=== PATIENT | female | born 1960 | race Caucasian/White ===

== ENCOUNTER → 2023-08-30 09:16 | Outpatient (REF) | payer OTHER, SELFPAY | LOC: WDC 09:16 | PROVIDERS: ATTENDING PHYSICIAN Surgery; FAMILY PHYSICIAN Internal Medicine | DX: N63.21 Unspecified lump in the left breast, upper outer quadrant (principal) | CPT/HCPCS: 76642; 77062; 77066 ==

== ENCOUNTER 2023-09-01 05:55 | Day surgery (SDC) | payer OTHER, SELFPAY ==
[2023-08-16 13:35] VITALS: BMI 21.9
--- NOTE | 2023-08-16 13:38 | HPS.HSE ---
Family Physician
-
Family Physician: Irvin Marks
Chief Complaint
-
Paroxysmal atrial fibrillation.
History of Present Illness
The patient is a pleasant 63 year old female presenting today for paroxysmal atrial fibrillation. The patient reports significant chest discomfort and palpitations occurring mainly at night secondary to this diagnosis. She was initially
diagnosed with atrial fibrillation in August 2022. Unfortunately, she has required 3 recent ER evaluations due to the recurrence of her atrial fibrillation with rapid ventricular response. She is on current pharmacological therapy with Metoprolol
Succinate. She is on no current oral anticoagulation due to a CHADS-VASc of 1. She notes that her current symptoms associated with her arrhythmia are greatly interfering with her activities of daily living and are overall impacting her quality of
life. She is interested in pursuing atrial fibrillation ablation for further arrhythmia management. She denies any current complaints today such as chest pain, shortness of breath, nausea, vomiting, diarrhea, lightheadedness, dizziness, cough, sore
throat, or fever.
Medical History
Past Medical History
Past Medical History: Reports Other
Additional Past Medical History:
1. Paroxysmal atrial fibrillation, pharmacological therapy with Metoprolol Succinate, no current oral anticoagulation.
2. Sinus bradycardia secondary to Metoprolol, asymptomatic.
3. Mild mitral regurgitation.
4. Mild tricuspid regurgitation.
5. Asthma, mild and intermittent.
6. Acute bronchitis 06/2023.
7. Diverticulosis.
8. Remote migraines.
9. Vertigo.
10. Interstitial cystitis.
11. Hypoglycemia.
12. Retinal detachment of right eye.
13. Macular pucker of right eye.
14. Diminished right sided vision secondary to the above.
15. Right sided otosclerosis, status post stapedectomy; residual right sided hearing loss noted.
Past Surgical History: Reports Other
Additional Past Surgical History:
1. Cholecystectomy.
2. Left ganglion cyst excision.
3. Right stapedectomy.
4. Right detached retina repair.
5. Right vitrectomy.
6. Sawyer teeth extraction.
7. Colonoscopy.
Social History
Tobacco: Non-smoker
Alcohol: None
Personal:
Living: Other (She currently lives in a 3 story home with her . )
Family History
Family History: Not pertinent
Allergies / Home Medications
Allergy/Medication List:
Home medications:
1. Albuterol sulfate 2 puffs inhaled every 6 hours as needed.
2. Aspirin 81 mg p.o. daily.
3. Probiotic 1 capsule p.o. daily.
4. Metoprolol Succinate 50 mg p.o. twice a day.
5. Immune support 1 tablet p.o. daily.
6. Women's multivitamin 1 tablet p.o. daily.
Allergies: Penicillin. Bactrim.
Review of Systems
-
A 12 point ROS was completed and negative except as noted: Yes
Physical Exam
Vital Signs
Blood pressure 114/67. Heart rate 56. Respirations 18. Pulse ox 99% on room air.
Height 5 feet, 8.5 inches. Weight 66.3 kg. BMI 21.9.
Physical Exam
General: Well Developed, Well Nourished and No Apparent Distress
HEENT: NormoCephalic, Moist mucous membranes, Atraumatic and Other (Diminished right sided visual loss. )
Respiratory: Clear
Cardiac: Regular Rhythm
GI: Soft, Non Tender and Non Distended
Musculoskeletal: Normal Gait & Station
Skin: Warm and Dry
Neuro: AO x 3 and Nonfocal/grossly intact
Laboratory Results
-
DIAGNOSTIC STUDIES as of 08/16/2023: White blood cell count 6.4. Hemoglobin 13.6. Platelet count 264,000. Sodium 135. Potassium 4.3. BUN 18. Creatinine 0.8. Glucose 83. Calcium 9.2. AST 28. ALT 23. Albumin 4.3. Type and screen O positive.
EKG 08/16/2023: Sinus bradycardia. When compared to the EKG of July 13, 2023, no significant change was found.
Echocardiogram 10/05/2022: Left ventricle is small in size. Normal left ventricular systolic function. Normal right ventricular size and function. Mild mitral regurgitation. Mild tricuspid regurgitation. Compared to the previous echo 02/10/18, there
is no significant change.
Stress echocardiogram 02/08/2019: Normal Stress Echocardiogram to 9 METS. Normal hemodynamic response to exercise. No ECG or echocardiographic evidence of myocardial ischemia. No prior study available for comparison. Low risk study.
Impression/Plan
-
IMPRESSION/PLAN:
1. Paroxysmal atrial fibrillation: The patient is in need of an atrial fibrillation ablation with Dr. Nick Ceballos on 09/01/2023. The benefits and risks of the procedure have been explained to the patient. The patient understands these risks and
wishes to proceed.
[2023-08-16 14:02] LABS: % Basophils 0.8 % (0-2); % Eosinophils 1.9 % (0-6); % Immature Granulocytes 0.2 % (0-0.5); % Lymphocytes 35.1 % (20.5-51.1); % Monocytes 8.1 % (1.7-9.3); % Neutrophils 53.9 % (42.2-75.2); Absolute Basophils 0.1 10^3/uL (0-0.2); Absolute Eosinophils 0.1 10^3/uL (0-0.7); Absolute Lymphocytes 2.3 10^3/uL (1.2-3.4); Absolute Monocytes 0.5 10^3/uL (0.1-0.6); Absolute Neutrophils 3.5 10^3/uL (1.4-6.5); Hematocrit 37.8 % (37.0-47.0); Hemoglobin 13.6 g/dL (12.0-16.0); Mean Corpuscular Hgb 32.2 pg (27.0-31.0); Mean Corpuscular Volume 89.6 fL (81.0-99.0); Mean Platelet Volume 9.1 fL (7.4-10.4); Nucleated Red Blood Cells % 0 %; Platelet Count 264 10^3/uL (130-400); Red Blood Cell Count 4.22 10^6/uL (4.20-5.40); Red Cell Dist. Width 12.4 % (11.5-14.5); White Blood Cell Count 6.4 10^3/uL (4.8-10.8)
[2023-08-16 15:05] LABS: ALT (SGPT) 23 U/L (0-35); AST (SGOT) 28 U/L (14-36); Albumin 4.3 g/dl (3.5-5.0); Alkaline Phosphatase 89 U/L (38-126); Blood Urea Nitrogen 18 mg/dl (7-17); Calcium 9.2 mg/dl (8.4-10.2); Carbon Dioxide 29 mmol/L (22-30); Chloride 103 mmol/L (98-107); Estimated Creatinine Clearance 74 ml/min; Glucose 83 mg/dl (70-99); Potassium 4.3 mmol/L (3.5-5.1); Sodium 135 mmol/L (135-145); Total Bilirubin 0.6 mg/dl (0.2-1.3); Total Protein 6.9 g/dl (6.3-8.2); eGFR > 60.00
[2023-09-01] VITALS (13 sets, daily range): BP systolic 94–113; BP diastolic 56–71; BMI 20.5
--- NOTE | 2023-09-01 09:37 | ITS.CL.ABL ---
[employer] - Ablation
Ablation
Procedure Report:
AFIB ablation:
Ms. Garner is a very pleasant 63 yr old woman with medical history significant for symptomatic paroxysmal atrial fibrillation who is here in the EP lab for atrial fibrillation ablation
Date of Procedure:
08/02/2023
Indications:
Symptomatic atrial fibrillation
Pre-Operative Diagnosis:
Paroxysmal Atrial fibrillation
Post-Operative Diagnosis:
Paroxysmal Atrial fibrillation
Procedure Performed:
Atrial fibrillation ablation with wide area circumferential ablation (WACA) approach for pulmonary vein isolation
Performing Physician:
Nick Ceballos MD
Assistants:
EP staff
Anesthesia:
See anesthesia records
Detailed Description of the Procedure:
Written informed consent was obtained from the patient after a full explanation of the risks and benefits of the procedure including the risks of sedation and anesthesia.
The patient was brought to the electrophysiology laboratory in stable condition in fasting state. Continuous electrocardiographic and hemodynamic monitoring was initiated.
The initial rhythm was normal sinus rhythm.
The procedure site was meticulously prepared with surgical scrub and allowed to dry with no pooling. Sterile draping was applied to cover the procedure site. The image intensifier was draped with sterile bag and positioned over the patient. After
infusion of local anesthetic, vascular access was obtained under ultrasound guidance and sheaths were placed over guide wire as detailed below.
Sheath and Catheter Placement:
In the right femoral vein, an 8-Guinean sheath was placed for use during the ablation procedure. A second 9-Fr sheath was placed for use during intracardiac echo procedure.
The sheaths were upgraded as needed during the case. Intracardiac catheters were positioned using direct fluoroscopic guidance.� ICE catheter was placed in RA. The following catheters / sheaths were placed
Sheaths:
��������������� Agilis sheath in right femoral vein upgraded from 8Fr in right femoral vein
��������������� 9Fr in right femoral vein
Catheters:
������������� [employer]ense Doshi Thermacool STSF bidirectional (D/F) - at locations of HRA, RV, LA and LV.
������������� Pentaray catheter � at locations of RA and LA
������������� ICE catheter - at locations of RA, SVC, and RV.
Intracardiac ECHO:
An 8-Guinean AcuNav intracardiac ECHO (ICE) probe was advanced through the 9-Guinean sheath in the femoral vein into the right atrium under fluoroscopic and ICE ultrasound image guidance and a baseline ECHO study was performed. The left atrial size
was normal. There was trace tricuspid regurgitation. The aortic valve was grossly normal. There was normal left ventricular size and function. There was a trace pericardial effusion. The NED has normal velocities noted on Doppler. All the four veins
were identified and good flow noted.
During the procedure, ICE was used for monitoring of complications, guidance of trans-septal puncture, monitor the catheter position and tracking ablation lesions. No change in the pericardial space noted throughout the procedure.
Trans-septal Puncture:
Heparin was initiated and infused to maintain appropriate ACT.
A J-tipped guidewire was advanced through the 8-Guinean sheath in the right femoral vein into the superior vena cava under fluoroscopic and ICE guidance. The 8-Guinean sheath was exchanged for an Agilis sheath which was advanced into the superior vena
cava. A BRK needle was advanced until the tip was slightly behind the tip of the dilator inside the Agilis. The apparatus was withdrawn until it was in contact with the fossa ovalis. The position was adjusted based on fluoroscopy and ultrasound
images from ICE. Under fluoroscopic, hemodynamic and ICE ultrasound guidance, left atrium was cannulated by advancing the needle. Once atrial septum was cannulated, the needle was pulled back and a BMW guide wire was advanced through the needle into
the left atrium. The guide wire was advanced into the left superior pulmonary vein. Both the sheath and the dilator was advanced into the left atrium. The dilator with the needle was withdrawn. Blood was aspirated from the Agilis sheath and arterial
blood confirmed. The sheath was flushed. Saline injection noted into the left atrium on ICE. The pressure waveform was checked ad LA pressure measured. The penta-ray catheter was advanced in the Agilis sheath into the left pulmonary vein.
The 3-D mapping was done and then the penta-ray was switched to ablation catheter and back to penta-ray as needed.
3D Electroanatomic Mapping:
Using the Pentaray catheter advanced through Agilis sheath into the left atrium, an electroanatomic map (EAM) of the left atrium was created using [employer] Carto mapping system. The map was used for localization of catheter position and
tacking of ablation lesions. The EAM of the left atrium showed 4 pulmonary veins with all four electrically connected to the body the LA. It showed no significant scar on the posterior wall of the LA. The LA was normal in size.
Following the EAM, preparations were made for ablation.
Phrenic nerve stimulation attempt:
The right sided pulmonary veins were identified and the anterior antrum and the deep anterior locations of the PVs were check with high output stimulation that showed no phrenic nerve capture in any of the potential ablation areas. The whole of the
anterior wall was mapped and the deep veins were also tested and once no sign of phrenic capture noted, a design line was created through the areas of tested antral myocardium for ablation lesions.
Ablation:
Pulmonary vein Isolation:
Radiofrequency ablation was performed using an open irrigation, force-sensing 3.5mm radiofrequency ablation catheter ([employer] STSF) by completing the circumferential lesions around the left and right pulmonary veins achieving pulmonary vein
isolation.
All the ablation lesions were guided by the Maizhuo SURPOINT module with the posterior lesions were limited to 45 campbell for SURPOINT lesion index goal of 400 and anterior wall lesions were limited to SURPOINT index goal of 450.
The esophagus was noted to be on the left side of the LA near the PV antra based on the locations of the esophageal temperature probe. Ablation was stopped for any temperature increase of 0.1 degree C. Max esophageal temperature was 36.0C�
EP study / Confirmation of the PVI and bidirectional block:
Following achievement of entrance block at the pulmonary veins, pacing from the pentaray catheter in each of the four veins at 10 milliamps for 2 milliseconds showed entrance and exit block. All PVI were rechecked at the end of the case and remained
isolated with dissociated and local capture with pacing. Entrance and exit block were demonstrated in all veins.
The LA was mapped with Carto EAM in sinus rhythm confirming the line of block at the ablation lesions lines.
Sinus Node Function: The sinus node functions are within acceptable normal range.
The AV fredo functions are deemed within normal range.
The mitral annulus was mapped and no sign of accessory pathway was noted.
Arrhythmia Induction:
No sustained arrhythmia was induced at the end of the study.�
Procedure End
ICE study was done again that showed no epicardial accumulation. No complications noted.
Following the completion of the EP study, catheters were removed. Protamine 50 mg was given at the end of the procedure and ACT was checked repeatedly. The sheaths were removed and hemostasis achieved with Vascade venous closure device and manual
compression after acceptable ACT is achieved.
Left atrial Pressure:
Pre-Procedure: Mean LA pressure was 9mmHg
Post-Procedure: Mean LA pressure was 9mmHg
Post-Procedure: Mean RA pressure was 6mmHg
Estimated Blood loss:
<10 cc
Specimens Removed:
None.
Implants / Devices:
None
Urine output:
None
Packs / Drains/ Tubes:
None
Instrument / Sponge Count Correct:
Yes
Complications of the Procedure:
None
Condition of Patient at Time of Transfer:
Hemodynamically stable with no neurological or vascular compromise.
Summary:
Successful atrial fibrillation ablation with circumferential bidirectional line of block at pulmonary vein antra (Pulmonary vein isolation)
[2023-09-01] MEDS: ANESTHETIC LOZENGE 1 LOZENGE PO (11:28)
--- NOTE | 2023-09-01 12:04 | W.PN.UPDATE ---
Update Note
Progress Note Update
63 yo WF s/p PVI (same day). She feels good, no cp, dianne clears, voiding, amb w/o dizziness, mild sore throat relief with cepacol, R fem site VASCADE closure c/d/i soft. EKG SR no sig ectopy. She will continue OAC Eliquis dose at 4pm at home. She
will continue metoprolol and will add PPI for 2 weeks. ACtivity restrictions reviewed. 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 She is for d/c home after 12pm.
AFIB ablation:
Ms. Garner is a very pleasant 63 yr old woman with medical history significant for symptomatic paroxysmal atrial fibrillation who is here in the EP lab for atrial fibrillation ablation
Date of Procedure:
08/02/2023
Procedure Performed:
Atrial fibrillation ablation with wide area circumferential ablation (WACA) approach for pulmonary vein isolation
[2023-09-01 15:44] LABS: ACT-LR - POC > 397 Seconds (116-155)
[2023-09-01 15:44] LABS: ACT-LR - POC > 397 Seconds (116-155)
== END 2023-09-01 12:10 | disposition home or self-care (01) ==
LOC: CATH 05:55
PROVIDERS: ATTENDING PHYSICIAN Internal Medicine Cardiovascular Disease; FAMILY PHYSICIAN Internal Medicine; OTHER PHYSICIAN Internal Medicine
DX: I48.0 Paroxysmal atrial fibrillation (principal); I08.1 Rheumatic disorders of both mitral and tricuspid valves; J45.909 Unspecified asthma, uncomplicated; K57.90 Diverticulosis of intestine, part unspecified, without perforation or abscess without bleeding; G43.909 Migraine, unspecified, not intractable, without status migrainosus; R42 Dizziness and giddiness; N30.10 Interstitial cystitis (chronic) without hematuria; E16.2 Hypoglycemia, unspecified; H80.91 Unspecified otosclerosis, right ear; Z79.82 Long term (current) use of aspirin; Z88.1 Allergy status to other antibiotic agents
CPT/HCPCS: C1769; C1760; C1732; C1894; C1766; C1759; C1892; 36415; 76937; 80053; 85025; 85347; 86850; 86900; 86901; 93005; 93656

== ENCOUNTER → 2023-10-11 08:19 | Outpatient (REF) | payer OTHER, SELFPAY | LOC: DHCBC HW 08:19 | PROVIDERS: ATTENDING PHYSICIAN Internal Medicine; FAMILY PHYSICIAN Internal Medicine | DX: I48.0 Paroxysmal atrial fibrillation (principal) | CPT/HCPCS: 93306 ==

== ENCOUNTER 2024-02-09 11:45 | Emergency (ER) | payer OTHER, SELFPAY ==
[2024-02-09 11:50] VITALS: BP 155/84; BMI 20.8
[2024-02-09 12:17] VITALS: BP 131/77
--- NOTE | 2024-02-09 12:28 | ED.GENMED ---
History of Present Illness
General
Chief Complaint: Heart Rate Problem
Source: patient
Exam Limitations: none
Time Seen by Provider: 02/09/24 12:17
History of Present Illness
History of Present Illness:
See MDM
Past History
Past History
ED Past Medical History: Arrthythmia and Asthma
Social History
Tobacco: Non-smoker
Alcohol: Occasional
Drug: None
Personal:
Living: with family
Employment: Employed
Phy Exam
Physical Exam
Physical Exam:
See MDM
Course
Orders/Labs/Results
Orders:
Orders
02/09/24 11:46
Electrocardiogram (*1) Urgent
Reason for Study: Bradycardia / Tachycardia
EKG- Treatment ONCE
02/09/24 12:27
0.9% Sodium Chloride 1000 ml [Nss] 1,000 ml IV BOLUS
02/09/24 12:38
Complete Blood Count/With Diff Urgent
Comprehensive Metabolic Panel Urgent
Magnesium Urgent
Troponin I Urgent
Abnormal Lab Results
02/09/24
12:38
MCH 31.5 H pg
(27.0-31.0)
02/09/24 12:38
02/09/24 12:38
Vital Signs
Initial and Last Documented VS:
Initial Vital Signs
Temp Pulse Resp BP Pulse Ox
98.4 F 90 16 155/84 100
02/09/24 11:50 02/09/24 11:50 02/09/24 11:50 02/09/24 11:50 02/09/24 11:50
Last Documented Vital Signs
Temp Pulse Resp BP Pulse Ox
98.4 F 65 10 108/70 99
02/09/24 11:50 02/09/24 13:45 02/09/24 13:45 02/09/24 13:00 02/09/24 13:45
MDM/Problems Addressed
Differential Diagnosis Includes:
HPI and MDM Narrative:
63-year-old female presenting for evaluation of palpitations and exhaustion. Patient is unsure if this is truly related to the heat or not. We are currently in the midst of a heat wave. Patient is concerned he could be A-fib related. She had an
ablation in September. Her and her furnace tender are decreasing her metoprolol. She usually walks 5 miles a day without any issues. She has not been walking recently due to the heat. She is currently denying any chest pain or shortness of breath.
On exam, she has no leg edema or tenderness. Heart regular in rhythm and she is in no respiratory distress. Will obtain basic blood work and continue to monitor on the line rider.
Physical exam
General: Well appearing and non-toxic
HEENT: protecting airway. Very mild dry mucous membranes
Neck: appears supple
CV: No evidence of cyanosis. Regular rate and rhythm
Resp: No accessory muscle use
Abd: Non-distended
Extremities: No deformities. No leg edema or tenderness
Neuro: alert
Psych: Normal affect
Skin: Intact
Problems Addressed including Acute and Chronic Conditions affecting care:
1. Palpitations
Acuity: acute
Prognosis: stable
Details: Patient currently in sinus rhythm. Will obtain basic blood work and continue to monitor on telemetry
Updates
Blood work without clinical significance. Patient remains well-appearing nontoxic. Discussed follow-up PCP and cardiology.
Differential Diagnosis (but not limited to): Heat exhaustion, PVCs, proximal A-fib
Testing considered: D-dimer but she is neither tachycardic nor hypoxic
Drug therapy (if applicable): OTC meds, please see d/c instruction regarding Rx drugs
Amount and/or Complexity of Data Reviewed
Clinical info obtained from: Patient
External data reviewed: N/A
Labs I independently reviewed (but not limited to): Electrolytes within normal limit
Radiology: N/A
Pulse Ox: not hypoxic
EKG independently reviewed: Sinus rhythm, normal axis, no STEMI
Deputy Director Of Public Works: Sinus rhythm
Critical Care: N/A
Risk of Complication:
Social Determinants of health: Good social support
Discussed with other providers: N/A
Escalation of Care includes Admit/Obs: After being observed in the Emergency Department, pt stable for discharge.
Occasional wrong word or 'sound a like' substitutions may have occurred due to the inherent limitations of voice recognition software. Read the chart carefully and recognize, using context, where substitutions have occurred.
*Critical Care Note
Total Time (30-74mins, 75-104mins- exclusive of procedures): Not Applicable
ED Attending Note
-
Portions of this chart may have been created with voice recognition software.� Occasional wrong word or��sound alike� substitutions may have occurred due to the inherent limitations of voice recognition software.
Discharge Plan
Departure
Patient Disposition: Home (Routine Discharge)
Date of Disposition: 02/09/24
Time of Disposition: 15:10
Patient with high blood pressure during this ER visit?: No
Discharge Problem:
Heart palpitations
Prescriptions:
No Action
Immune Support 1,000-50 mg Tablet, Effervescent
1 ea PO DAILY
[id number] carb-vit K 18 mg iron-400 mcg-500 mg Tablet
1 tab PO DAILY
Probiotic Complex 25 billion cell -100 mg Capsule
1 cap PO DAILY
metoprolol succinate 100 mg Tablet Extended Release 24 Hr
50 mg PO BID
albuterol sulfate 90 mcg/actuation Hfa Aerosol Inhaler
2 puff INHALATION Q6H PRN (Reason: difficulty breathing)
prednisolone acetate 1 % Drops,Suspension
1 drp OPHTHALMIC (EYE) BID
acetaminophen [Tylenol] 325 mg Capsule
650 mg PO Q6H PRN (Reason: headache/pain)
pantoprazole [Protonix] 40 mg tablet,delayed release (DR/EC)
40 mg PO DAILY Qty: 14 0RF
Referrals:
Irvin Marks MD [Family Provider] -
Activity Restrictions/Additional Instructions:
Please return for any worsening symptoms.
You may return at any time if you have further concerns.
Please follow up with your doctor at the first available appointment, preferably this week.
Please check in with your furnace tender.
Thank you for choosing [facility].
Interventions
Interventions:
*Risk Screen - Suicide Last Done: 02/09/24 11:50
*Neglect/Abuse Screening Last Done: 02/09/24 11:50
ED- Fall Risk Assessment Last Done: 02/09/24 11:50
ED- Cardiac Assessment Last Done: 02/09/24 12:16
ED- Pulmonary Assessment Last Done: 02/09/24 12:16
Discharge Date and Time
Print Language: BARBADIAN
[2024-02-09] MEDS: NSS 1000 IV (12:35)
[2024-02-09 12:48] LABS: % Basophils 0.8 % (0-2); % Eosinophils 1.1 % (0-6); % Immature Granulocytes 0.4 % (0-0.5); % Lymphocytes 26.3 % (20.5-51.1); % Monocytes 7.4 % (1.7-9.3); Absolute Eosinophils 0.1 10^3/uL (0-0.7); Absolute Lymphocytes 1.4 10^3/uL (1.2-3.4); Absolute Monocytes 0.4 10^3/uL (0.1-0.6); Absolute Neutrophils 3.4 10^3/uL (1.4-6.5); Hematocrit 37.8 % (37.0-47.0); Hemoglobin 13.4 g/dL (12.0-16.0); Mean Corp Hgb Conc. 35.4 g/dL (33.0-37.0); Mean Corpuscular Hgb 31.5 pg (27.0-31.0); Mean Corpuscular Volume 88.7 fL (81.0-99.0); Mean Platelet Volume 8.8 fL (7.4-10.4); Nucleated Red Blood Cells % 0 %; Platelet Count 236 10^3/uL (130-400); Red Blood Cell Count 4.26 10^6/uL (4.20-5.40); Red Cell Dist. Width 12.2 % (11.5-14.5); White Blood Cell Count 5.3 10^3/uL (4.8-10.8)
[2024-02-09 12:58] LABS: ALT (SGPT) 17 U/L (0-35); AST (SGOT) 29 U/L (14-36); Albumin 4.5 g/dl (3.5-5.0); Alkaline Phosphatase 108 U/L (38-126); Blood Urea Nitrogen 9 mg/dl (7-17); Calcium 9.3 mg/dl (8.4-10.2); Carbon Dioxide 25 mmol/L (22-30); Chloride 103 mmol/L (98-107); Estimated Creatinine Clearance 85 ml/min; Glucose 98 mg/dl (70-99); Magnesium 2.2 mg/dl (1.6-2.3); Potassium 3.9 mmol/L (3.5-5.1); Sodium 137 mmol/L (135-145); Total Bilirubin 0.6 mg/dl (0.2-1.3); Total Protein 7.1 g/dl (6.3-8.2); eGFR > 60.00
[2024-02-09 13:00] VITALS: BP 108/70
[2024-02-09 13:09] LABS: Troponin I < 0.012 ng/ml
[2024-02-09 14:00] VITALS: BP 109/75
[2024-02-09 15:00] VITALS: BP 120/69
== END 2024-02-09 15:50 | disposition home or self-care (01) ==
LOC: EMR 11:45
PROVIDERS: EMERGENCY PHYSICIAN Student in an Organized Health Care Education/Training Program; FAMILY PHYSICIAN Internal Medicine
DX: R00.2 Palpitations (principal); J45.909 Unspecified asthma, uncomplicated
CPT/HCPCS: 99283; 96360; 80053; 83735; 84484; 85025; 93005

== ENCOUNTER 2024-02-11 03:22 | Emergency (ER) | payer OTHER, SELFPAY ==
[2024-02-11 03:30] VITALS: BP 123/83
[2024-02-11 04:35] VITALS: BP 132/86
[2024-02-11 04:53] LABS: % Basophils 0.9 % (0-2); % Eosinophils 2.9 % (0-6); % Immature Granulocytes 0.3 % (0-0.5); % Monocytes 8.9 % (1.7-9.3); Absolute Basophils 0.1 10^3/uL (0-0.2); Absolute Eosinophils 0.2 10^3/uL (0-0.7); Absolute Lymphocytes 2.4 10^3/uL (1.2-3.4); Absolute Monocytes 0.6 10^3/uL (0.1-0.6); Absolute Neutrophils 3.3 10^3/uL (1.4-6.5); Hematocrit 37.6 % (37.0-47.0); Hemoglobin 13.1 g/dL (12.0-16.0); Mean Corp Hgb Conc. 34.8 g/dL (33.0-37.0); Mean Corpuscular Hgb 31.4 pg (27.0-31.0); Mean Corpuscular Volume 90.2 fL (81.0-99.0); Mean Platelet Volume 8.9 fL (7.4-10.4); Nucleated Red Blood Cells % 0 %; Platelet Count 259 10^3/uL (130-400); Red Blood Cell Count 4.17 10^6/uL (4.20-5.40); Red Cell Dist. Width 12.3 % (11.5-14.5); White Blood Cell Count 6.5 10^3/uL (4.8-10.8)
[2024-02-11 05:00] VITALS: BP 111/74
[2024-02-11 05:13] LABS: ALT (SGPT) 17 U/L (0-35); AST (SGOT) 29 U/L (14-36); Albumin 4.3 g/dl (3.5-5.0); Alkaline Phosphatase 102 U/L (38-126); Blood Urea Nitrogen 17 mg/dl (7-17); Calcium 9.4 mg/dl (8.4-10.2); Carbon Dioxide 27 mmol/L (22-30); Chloride 103 mmol/L (98-107); Glucose 90 mg/dl (70-99); Potassium 4.2 mmol/L (3.5-5.1); Sodium 138 mmol/L (135-145); Total Bilirubin 0.5 mg/dl (0.2-1.3); Total Protein 6.9 g/dl (6.3-8.2); eGFR > 60.00
--- NOTE | 2024-02-11 05:38 | ED.GENMED ---
History of Present Illness
General
Chief Complaint: Heart Rate Problem
Source: patient and previous hospital records (ED visit for similar complaint just 2 days ago.)
Exam Limitations: none
Time Seen by Provider: 02/11/24 05:31
Nursing documentation reviewed up to this point in time: agreed with
History of Present Illness
History of Present Illness:
This is a 63-year-old woman with history of paroxysmal atrial fibrillation who underwent A-fib ablation September of this year. She complains of intermittent palpitations, most noted at nighttime, waking her from sleep. Palpitations generally
resolve within 5 to 30 minutes without associated symptoms. She awoke tonight at 3 AM with palpitations and her smart watch noted heart rate of 150. Palpitations resolved just prior to arrival and EKG upon arrival in triage shows normal sinus
rhythm.
Very similar complaint prompting ED visit just 2 days ago. EKG at that time again showed normal sinus rhythm. Monitor showed no arrhythmia and laboratory studies were unremarkable.
She follows with Dr. Childress and she did place a call to their office yesterday. Plan is for follow-up telephone call next week.
She is chronically maintained on metoprolol 25 mg daily. She had been recommended to decrease this to half a tablet but with increase in episodes of palpitations was recommended to titrate it back to a full tablet, 25 mg daily.
Past History
Past History
ED Past Medical History: Arrthythmia (Paroxysmal atrial fibrillation) and Asthma
ED Past Surgical History: Cardiac (A-fib ablation September 2023) and Cholecystectomy
Social History
Tobacco: Non-smoker
Alcohol: Occasional
Drug: None
Personal:
Living: with family
Employment: Employed
Family History
Family History: Other (Noncontributory)
Phy Exam
Physical Exam
Physical Exam:
GENERAL: 63-year-old woman appears her stated age, bright and alert, pleasant, appears in no acute distress. is accompanying.
EYE: anicteric
NECK: Supple, nontender, no meningismus, no significant adenopathy.
ENT: oral mucosa is moist. No rhinorrhea.
CARDIAC: Regular rate and rhythm. no murmur.
LUNGS: Clear breath sounds bilaterally, no acute respiratory distress, no wheezes/rales/rhonchi
ABDOMEN: Soft, nondistended, without focal tenderness
NEUROLOGICAL: Alert and oriented x3, no focal neuro deficits. Gait is mederos and steady.
SKIN: Warm and dry, normal color, skin intact. No rash.
MUSCULOSKELETAL: No C/C/E. peripheral pulses are full and equal b/l. No palpable tenderness.
PSYCH: Normal and appropriate interaction.
Course
Orders/Labs/Results
Orders:
Orders
02/11/24 03:22
EKG [Electrocardiogram (*1)] Urgent
Reason for Study: Tachycardia
02/11/24 03:23
EKG- Treatment ONCE
02/11/24 04:45
CMP [Comprehensive Metabolic Panel] Urgent
Complete Blood Count/With Diff Urgent
Abnormal Lab Results
02/11/24
04:45
RBC 4.17 L 10^6/uL
(4.20-5.40)
MCH 31.4 H pg
(27.0-31.0)
02/11/24 04:45
02/11/24 04:45
Vital Signs
Initial and Last Documented VS:
Initial Vital Signs
Pulse Resp BP Pulse Ox
69 14 123/83 100
02/11/24 03:30 02/11/24 03:30 02/11/24 03:30 02/11/24 03:30
Last Documented Vital Signs
Temp Pulse Resp BP Pulse Ox
97.5 F 62 13 111/74 97
02/11/24 03:31 02/11/24 05:30 02/11/24 05:30 02/11/24 05:00 02/11/24 05:30
MDM/Problems Addressed
Differential Diagnosis Includes:
Patient presents with palpitations waking her from sleep with reported heart rate at 150 at home. No associated symptoms. Similar complaints during ED visit just 2 days ago.
Upon arrival to the ED patient found to be in sinus rhythm and remains in normal sinus rhythm since arrival.
Remains hemodynamically stable.
Labs again are unremarkable.
It is reassuring that palpitations resolve within 5 to 30 minutes.
Recommend she continue her metoprolol 25 mg daily and plan for follow-up with cardiology.
Neck step may need to be event monitor.
Discussed return precautions including persistent palpitations especially if persist for greater than 1 hour or if accompanied with severe chest pain, severe shortness of breath, significant dizziness/lightheadedness.
Chronic conditions affecting care: Arrhythmia
*Pulse Oximetry
Patient hypoxic: no
*EKG
Interpreted by ED Provider?: Yes
Interpretation: normal
Comparison EKG: no changes (Unchanged from EKG from 2 days ago)
Rate: normal
Rhythm: sinus
Julian: normal axis
Interval: normal interval
QRS Pattern: normal QRS
Ischemia: no ischemia
*Tours Hostess Interpretation
Rate: normal
Interpretation: normal
Rhythm: sinus
*Critical Care Note
Total Time (30-74mins, 75-104mins- exclusive of procedures): Not Applicable
ED Attending Note
-
Portions of this chart may have been created with voice recognition software.� Occasional wrong word or��sound alike� substitutions may have occurred due to the inherent limitations of voice recognition software.
Discharge Plan
Departure
Patient Disposition: Home (Routine Discharge)
Date of Disposition: 02/11/24
Time of Disposition: 05:38
Patient with high blood pressure during this ER visit?: No
Condition: Good
Discharge Problem:
Heart palpitations, History of atrial fibrillation
Instructions: Palpitations (DC)
Prescriptions:
No Action
Immune Support 1,000-50 mg Tablet, Effervescent
1 ea PO DAILY
[id number]-Ca carb-vit K 18 mg iron-400 mcg-500 mg Tablet
1 tab PO DAILY
Probiotic Complex 25 billion cell -100 mg Capsule
1 cap PO DAILY
metoprolol succinate 100 mg Tablet Extended Release 24 Hr
50 mg PO BID
albuterol sulfate 90 mcg/actuation Hfa Aerosol Inhaler
2 puff INHALATION Q6H PRN (Reason: difficulty breathing)
prednisolone acetate 1 % Drops,Suspension
1 drp OPHTHALMIC (EYE) BID
acetaminophen [Tylenol] 325 mg Capsule
650 mg PO Q6H PRN (Reason: headache/pain)
pantoprazole [Protonix] 40 mg tablet,delayed release (DR/EC)
40 mg PO DAILY Qty: 14 0RF
Referrals:
Brodie Childress MD [Active] - Call in 1-3 days for appt
Irvin Marks MD [Family Provider] -
Interventions
Interventions:
*Risk Screen - Suicide Last Done: 02/11/24 03:30
*General Assessment Last Done: 02/11/24 03:30
*Neglect/Abuse Screening Last Done: 02/11/24 03:30
ED- Fall Risk Assessment Last Done: 02/11/24 05:02
*ED COVID-19 Vaccine History Last Done: 02/11/24 05:46
*Nursing Disposition Last Done: 02/11/24 05:46
ED- Cardiac Assessment Last Done: 02/11/24 05:02
ED- Pulmonary Assessment Last Done: 02/11/24 05:02
Discharge Date and Time
Discharge Date/Time: 02/11/24 05:48
Print Language: MALTESE
== END 2024-02-11 05:48 | disposition home or self-care (01) ==
LOC: EMR 03:22
PROVIDERS: EMERGENCY PHYSICIAN Emergency Medicine; FAMILY PHYSICIAN Internal Medicine
DX: R00.2 Palpitations (principal); I48.0 Paroxysmal atrial fibrillation
CPT/HCPCS: 99284; 80053; 85025; 93005

== ENCOUNTER 2024-02-29 06:31 | Outpatient (RCR) | payer OTHER, SELFPAY | END 2024-02-29 23:59 | disposition home or self-care (01) | LOC: RPT 06:31 | PROVIDERS: ATTENDING PHYSICIAN Orthopaedic Surgery; FAMILY PHYSICIAN Internal Medicine | DX: M17.12 Unilateral primary osteoarthritis, left knee (principal); M25.362 Other instability, left knee; Z73.6 Limitation of activities due to disability | CPT/HCPCS: 97110; 97162 ==

== ENCOUNTER 2024-03-27 13:53 | Outpatient (RCR) | payer OTHER, SELFPAY | END 2024-03-28 08:18 | disposition home or self-care (01) | LOC: RPT 13:53 | PROVIDERS: ATTENDING PHYSICIAN Orthopaedic Surgery; FAMILY PHYSICIAN Internal Medicine | DX: M17.12 Unilateral primary osteoarthritis, left knee (principal); M25.362 Other instability, left knee; Z73.6 Limitation of activities due to disability | CPT/HCPCS: 97110; 97112 ==

== ENCOUNTER 2024-04-23 05:52 | Day surgery (SDC) | payer OTHER, SELFPAY ==
[2024-04-16 13:05] VITALS: BMI 21.0
[2024-04-23] VITALS (10 sets, daily range): BP systolic 98–129; BP diastolic 54–84; BMI 20.7
[2024-04-23 08:55] LABS: ACT-LR - POC 302 Seconds (116-155)
[2024-04-23 09:18] LABS: ACT-LR - POC 255 Seconds (116-155)
[2024-04-23 09:43] LABS: ACT-LR - POC 369 Seconds (116-155)
--- NOTE | 2024-04-23 10:08 | ITS.CL.ABL ---
[employer] Machine [employer]ter - Ablation
Ablation
Procedure Report:
AFIB ablation:
Ms. Garner is a very pleasant 64 yr old woman with h/o paroxysmal AF s/p AF ablation in 09/2023 with recurrent arrhythmia highly suspicious for atrial flutter with SVT with AT presented today to the EP lab for atrial fibrillation / flutter ablation.
Date of Procedure:
04/23/2024
Indications:
Recurrent atrial fibrillation / atrial flutter / Atrial tachycardia
Pre-Operative Diagnosis:
Atrial flutter / Atrial tachycardia
Post-Operative Diagnosis:
Atrial flutter / Atrial tachycardia
Procedure Performed:
Redo atrial fibrillation ablation with focal atrial fibrillation ablation
Ileana terminalis atrial tachycardia ablation
Right sided atrial tachycardia ablation
Performing Physician:
Nick Ceballos MD
Assistants:
EP staff
Anesthesia:
See anesthesia records
Detailed Description of the Procedure:
Written informed consent was obtained from the patient after a full explanation of the risks and benefits of the procedure including the risks of sedation and anesthesia.
The patient was brought to the electrophysiology laboratory in stable condition in fasting state. Continuous electrocardiographic and hemodynamic monitoring was initiated.
The initial rhythm was sinus.
Time out:
The procedure site was meticulously prepared with surgical scrub and allowed to dry with no pooling. Sterile draping was applied to cover the procedure site. The image intensifier was draped with sterile bag and positioned over the patient.
Prior to the start of the procedure a surgical pause was performed with in agreement from anesthesia, EP staff with double identifier and explanation of the procedure, plan and site of the procedure stated with allergies and medications and
pertinent labs reviewed.
After infusion of local anesthetic, vascular access was obtained under ultrasound guidance and sheaths were placed over guide wire as detailed below.
Sheaths:
��������������� Agilis sheath in right femoral vein upgraded from 8Fr in right femoral vein
��������������� 9Fr in right femoral vein
��������������� 7fr in right femoral vein
Catheters:
��������������� ������������� 3.5mm force sensing irrigated Thermocool STSF DF Bidirectional - at locations of HRA, LA, LV and CS.
��������������� ������������� Penta-ray mapping catheter � at locations of RA, LA
��������������� ������������� ICE catheter - at locations of RA, SVC, and RV.
��������������� ������������� Decapolar Bard catheter � at locations of RA and CS
A 7000 units of heparin was given
Intracardiac ECHO:
An 8-Zimbabwean AcuNav intracardiac ECHO (ICE) probe was advanced through the 9-Zimbabwean sheath in the right femoral vein into the right atrium under fluoroscopic and ICE ultrasound image guidance and a baseline ECHO study was performed. The left atrial
size was normal. There was trace tricuspid regurgitation. There was mild mitral regurgitation. The aortic valve was grossly normal. There was normal left ventricular size and function. There is trace pericardial effusion. All the four veins were
identified and has good flow identified. No definite clot seen in NED from RVOT and the RA views. .
During the procedure, ICE was used for monitoring of complications, guidance of trans-septal puncture, monitor the catheter position and tracking ablation lesions. No change in the pericardial space noted throughout the procedure.
The RA was identified and CTI was imaged.
Electroanatomic mapping of the right atrium:
A J-tipped guidewire was advanced through the 8-Zimbabwean sheath in the right femoral vein into the superior vena cava under fluoroscopic and ICE guidance. The 8-Zimbabwean sheath was exchanged for an Agilis sheath which was advanced into the superior vena
cava.
Using the Pentaray catheter advanced through Agilis sheath into the right atrium, an electroanatomic map (EAM) of the right atrium was created using Penta-ray with [id number]-Nextter Carto mapping system.
Full comprehensive electrophysiologic study was done. AV fredo ERP was noted at 600/370 ms. �Patient had nonsustained tachycardia identified at cycle length of 270 ms. There was significant wobble in the cycle length indicative of focal source. CS
and Penta in the right atrium identified source to be lateral wall. Full mapping could not be done as tachycardia spontaneously terminated.
Isuprel was started at 2 mg/min. The atrial flutter with cycle length of 400 ms was induced that degenerated into atrial fibrillation. Isuprel was discontinued.
Atrial fibrillation dissipated into normal sinus rhythm spontaneously. Decision was made first to do the typical atrial flutter ablation before trying to map the atrial tachycardia.
Ablation # 1: Typical Atrial Flutter Ablation:
Radiofrequency ablation was performed using a 3.5mm, open irrigation, force-sensing bidirectional ablation catheter (EverCloud STSF) in the cavotricuspid isthmus from the tricuspid annulus to the IVC ridge. All the ablation lesions were guided by
the rVita SURPOINT module with the CTI lesions were limited to 45 campbell for SURPOINT lesion index goal of 450.
��������������� -Bidirectional block was confirmed across the CTI line with differential pacing.
��������������� -Double potentials were spaced greater than 98 msec apart.
��������������� -The conduction time across the CTI line from proximal CS pacing was 137 msec.
��������������� -EAM of the right atrium was obtained with coronary sinus pacing and showed a line of block at the CTI.
��������������� -The time interval just lateral to the ablation lesions was 137 msec and the lateral wall was 112 msec
��������������� - All these maneuvers confirmed the block at the CTI line.
- Post ablation HV interval was unchanged at 45msec
Then further EP study was done.
Patient was noted to have 2 different foci of atrial tachycardia. Both of them were coming from the lateral wall of the right atrium. There were 2 distinct cycle lengths 1 was Foster less than 470 ms and the second focal A. tach was around 500 ms.
Sinus rhythm was at 1200 ms.
The PACs and A. tach's were mapped to the lateral wall of the right atrium.� Different areas of the right atrium also noted to have electrical irritability leading to the transit A-fib.
Ablation #2: Atrial tachycardia ablation/right atrial focus for atrial fibrillation:
The focal sources of atrial tachycardia and atrial fibrillation were identified. The origin was identified and ablation was done using radiofrequency ablation using contact for sensing 3.5 mm radiofrequency bidirectional irrigated ablation catheter
(ThermoCool ST SF).
With ablation, patient did have atrial tachycardia induced that terminated back into normal sinus rhythm. Myocardial irritability and A. tach dissipated after that.
Then attention was given to atrial fibrillation ablation.
Trans-septal Puncture:
Heparin was initiated and infused to maintain appropriate ACT. A J-tipped guidewire was advanced through the 8-Zimbabwean sheath in the right femoral vein into the superior vena cava under fluoroscopic and ICE guidance. The 8-Zimbabwean sheath was exchanged
for an Agilis sheath which was advanced into the superior vena cava. A BRK transseptal needle was advanced until the tip was slightly behind the tip of the dilator inside the Agilis sheath. The apparatus was withdrawn until it was in contact with
the fossa ovalis. The position was adjusted based on fluoroscopy and ultrasound images from ICE. Under fluoroscopic, hemodynamic and ICE ultrasound guidance, left atrium was cannulated by advancing the needle. Once atrial septum was cannulated, the
needle was pulled back and a saline was injected through the needle into the left atrium. Both the sheath and the dilator was advanced into the left atrium. The dilator with the needle was withdrawn. Blood was aspirated from the Agilis sheath and
arterial blood confirmed. The sheath was flushed. Saline injection noted into the left atrium on ICE. The mapping catheter was advanced in the Agilis sheath into the left pulmonary vein.
3D Electroanatomic Mapping:
Using the Pentaray catheter advanced through Agilis sheath into the left atrium, an electroanatomic map (EAM) of the left atrium was created using Carto mapping system. The map was used for localization of catheter position and tacking of ablation
lesions.
The EAM of the left atrium showed 4 pulmonary veins with all 4 veins electrically isolated from the body the LA. The left atrial posterior wall was also completely silent consistent with her previous ablation. No sign of reconnections noted.
There was dissociated signals noted in the veins. The atrial tissue otherwise was normal without any significant scar in the LA.
EP study and Confirmation of the PVI and bidirectional block:
Following achievement of entrance block at the pulmonary veins, pacing from the pentaray catheter in each of the four veins at 10 milliamps for 2 milliseconds showed entrance and exit block. All PVI were rechecked at the end of the case and remained
isolated with dissociated and local capture with pacing. Entrance and exit block were demonstrated in all veins.
The RA and LA was mapped with Carto EAM in sinus rhythm confirming the line of block at the ablation lesions lines.
Sinus Node Function: The sinus node functions are within acceptable normal range.
The AV fredo functions are deemed within normal range.
Arrhythmia Induction:
No sustained arrhythmia was induced at the end of the study.�
All PVI were rechecked at the end of the case and remained isolated with dissociated and local capture with pacing. Entrance and exit block were demonstrated.
Procedure End
ICE study was done again that showed no epicardial accumulation. No complications noted.
Following the completion of the EP study, catheters were removed. Protamine 40 mg was given at the end of the procedure and ACT was checked repeatedly. The sheaths were removed and hemostasis achieved with VASCADE and manual compression after
acceptable ACT is achieved.
Left atrial Pressure:
Pre-Procedure: Mean LA pressure was 12mmHg
Post-Procedure: Mean LA pressure was 12mmHg
Pre-Procedure: Mean RA pressure was 3mmHg
Estimated Blood loss:
<10 cc
Specimens Removed:
None.
Implants / Devices:
None
Urine output:
None
Packs / Drains/ Tubes:
None
Instrument / Sponge Count Correct:
Yes
Complications of the Procedure:
None
Condition of Patient at Time of Transfer:
Hemodynamically stable with no neurological or vascular compromise.
Summary:
Successful redo atrial fibrillation ablation with focal high frequency atrial fibrillation foci ablation, Right atrial lateral wall tachycardia ablation, Cavo tricuspid atrial flutter ablation
[2024-04-23] MEDS: ANESTHETIC LOZENGE 1 LOZENGE PO (11:02)
--- NOTE | 2024-04-23 14:54 | W.PN.UPDATE ---
Update Note
Progress Note Update
Pt seen post Right AT/AFlutter ablation. Transseptal stick but no procedures done in [place] per Dr. Ceballos. Right groin with vascade closure, no ht/bleeding, oob ambulating, urinating without difficulty. Post EKG NSR 80s, no acute changes. Resume
eliquis tonight, continue other meds as before. Followup at [facility] as scheduled. Home today if groin site/tele remain stable.
== END 2024-04-23 13:06 | disposition home or self-care (01) ==
LOC: CATH 05:52
PROVIDERS: ATTENDING PHYSICIAN Internal Medicine Cardiovascular Disease; FAMILY PHYSICIAN Internal Medicine; OTHER PHYSICIAN Internal Medicine
DX: I48.3 Typical atrial flutter (principal); I48.0 Paroxysmal atrial fibrillation; I47.19 Other supraventricular tachycardia; Z79.01 Long term (current) use of anticoagulants; Z79.899 Other long term (current) drug therapy
CPT/HCPCS: C1769; C1894; C1730; C1732 ×2; C1766; C1759; 93005; 93653; 93655; C1760

== ENCOUNTER → 2024-06-12 13:09 | Outpatient (REF) | payer OTHER, SELFPAY | LOC: RCS 13:09 | PROVIDERS: ATTENDING PHYSICIAN Internal Medicine | DX: I48.0 Paroxysmal atrial fibrillation (principal); R00.2 Palpitations | CPT/HCPCS: 93005 ==

== ENCOUNTER → 2024-08-07 15:58 | Outpatient (REF) | payer OTHER, SELFPAY | LOC: RCS 15:58 | PROVIDERS: ATTENDING PHYSICIAN Nurse Practitioner; FAMILY PHYSICIAN Internal Medicine | DX: I48.0 Paroxysmal atrial fibrillation (principal); R00.2 Palpitations | CPT/HCPCS: 93005 ==

== ENCOUNTER 2024-09-06 10:20 | Emergency (ER) | payer OTHER, SELFPAY ==
[2024-09-06 10:22] VITALS: BP 127/82; BMI 22.3
--- NOTE | 2024-09-06 10:29 | ED.GENMED ---
History of Present Illness
<Mercedes Angulo PA-C - Last Filed: 09/06/24 14:32>
General
Chief Complaint: Heart Rate Problem
Source: patient and ambulance crew
Exam Limitations: none
Time Seen by Provider: 09/06/24 10:26
History of Present Illness
History of Present Illness:
64yoF with a history of atrial fibrillation presenting via EMS for evaluation of chest pain. Patient started with palpitations at 6am. She checked her AppleWatch and her heart rhythm was inconclusive. She sent her EKGs to her plaster mechanic and
thought that she had an episode of afib which self-resolved. She started again with symptoms at 7am. She started to experience sharp substernal chest pain which felt like her bra was on too tight. The pain radiates to her back and down both arms.
She has never had this severe of pain before with her prior afib episodes. She took her PRN dose of 12.5mg metoprolol around 8am this morning. She continues to have some chest discomfort which is rated as a 4/10 in severity. She denies any shortness
of breath, diaphoresis, syncope, paresthesias, vomiting. Prehospital EKG showed NSR. She has had 2 prior ablations for her afib without success. She is currently maintained on Cardizem, Eliquis, and metoprolol PRN. She has an appt with Dr. Ceballos
scheduled for tomorrow.
Past History
<Mercedes Angulo PA-C - Last Filed: 09/06/24 14:32>
Past History
ED Past Medical History: Arrthythmia (Paroxysmal atrial fibrillation) and Asthma
ED Past Surgical History: Cardiac (A-fib ablation September 2023) and Cholecystectomy
Social History
Tobacco: Non-smoker
Alcohol: Occasional
Drug: None
Personal:
Living: with family
Employment: Employed
Family History
Family History: Other (Noncontributory)
Phy Exam
<Mercedes Angulo PA-C - Last Filed: 09/06/24 14:32>
General Physical Exam
General Presentation: well appearing and no apparent distress
General age: appears stated age
General Skin: warm and dry
General Habitus: normal
General Mental: alert
ENT Exam
ENT Exam: normocephalic
Cardiovascular Exam
Cardiovascular Exam: regular rate/rhythm, no edema and no murmur
Pulmonary Exam
Pulmonary Exam: lungs clear, no respiratory distress, no rales, no crackles and no rhonchi
Neurological Exam
Neurological Exam: alert
[place] Coma Scale
Eye Opening: Spontaneous
Verbal Response: Oriented
Motor Response: Obeys Commands
GCS Total Score: 15
Skin Exam
Skin Exam: normal color and warm/dry
Psychiatric Exam
Psychiatric Exam: normal mood/affect
<Bismark Corrigan MD - Last Filed: 09/06/24 12:38>
[place] Coma Scale
GCS Total Score: 15
Course
<Mercedes Angulo PA-C - Last Filed: 09/06/24 14:32>
Orders/Labs/Results
Orders:
Orders
09/06/24 10:27
CT Chest/abd/pelvis Angio W/wo Urgent
Comment:
Reason For Exam: Chest pain radiating to the back
Cardiac Monitoring- Treatment ONCE
09/06/24 10:28
Electrocardiogram (*1) Urgent
Reason for Study: Chest Pain
EKG- Treatment ONCE
09/06/24 10:31
Complete Blood Count/With Diff Urgent
Comprehensive Metabolic Panel Urgent
Magnesium Urgent
TSH Reflex To Free T4 Urgent
Troponin I Urgent
09/06/24 11:31
EKG- Treatment ONCE
09/06/24 12:41
0.9% Sodium Chloride 500 ml [Nss] 500 ml IV BOLUS
Midodrine [ProAmatine] 5 mg PO NOW STA
09/06/24 13:30
Electrocardiogram (*1) Urgent
Reason for Study: Chest Pain
09/06/24 13:33
Troponin I Urgent
Abnormal Lab Results
09/06/24
10:31
MCH 31.7 H pg
(27.0-31.0)
Neutrophils % 76.5 H %
(42.2-75.2)
Lymphocytes % 16.4 L %
(20.5-51.1)
BUN 19 H mg/dl
(7-17)
09/06/24 10:31
09/06/24 10:31
Vital Signs
Initial and Last Documented VS:
Initial Vital Signs
Pulse Resp BP Pulse Ox
81 16 127/82 100
09/06/24 10:22 09/06/24 10:22 09/06/24 10:22 09/06/24 10:22
Last Documented Vital Signs
Pulse Resp BP Pulse Ox
64 13 106/70 98
09/06/24 14:15 09/06/24 13:45 09/06/24 14:00 09/06/24 14:15
<Bismark Corrigan MD - Last Filed: 09/06/24 12:38>
Orders/Labs/Results
Orders:
Orders
09/06/24 10:27
CT Chest/abd/pelvis Angio W/wo Urgent
Comment:
Reason For Exam: Chest pain radiating to the back
Cardiac Monitoring- Treatment ONCE
09/06/24 10:28
Electrocardiogram (*1) Urgent
Reason for Study: Chest Pain
EKG- Treatment ONCE
09/06/24 10:31
Complete Blood Count/With Diff Urgent
Comprehensive Metabolic Panel Urgent
Magnesium Urgent
TSH Reflex To Free T4 Urgent
Troponin I Urgent
09/06/24 11:31
EKG- Treatment ONCE
09/06/24 12:41
0.9% Sodium Chloride 500 ml [Nss] 500 ml IV BOLUS
Midodrine [ProAmatine] 5 mg PO NOW STA
09/06/24 13:30
Electrocardiogram (*1) Urgent
Reason for Study: Chest Pain
09/06/24 13:33
Troponin I Urgent
Abnormal Lab Results
09/06/24
10:31
MCH 31.7 H pg
(27.0-31.0)
Neutrophils % 76.5 H %
(42.2-75.2)
Lymphocytes % 16.4 L %
(20.5-51.1)
BUN 19 H mg/dl
(7-17)
09/06/24 10:31
09/06/24 10:31
Vital Signs
Initial and Last Documented VS:
Initial Vital Signs
Pulse Resp BP Pulse Ox
81 16 127/82 100
09/06/24 10:22 09/06/24 10:22 09/06/24 10:22 09/06/24 10:22
Last Documented Vital Signs
Pulse Resp BP Pulse Ox
64 13 106/70 98
09/06/24 14:15 09/06/24 13:45 09/06/24 14:00 09/06/24 14:15
<Mercedes Angulo PA-C - Last Filed: 09/06/24 14:32>
MDM/Problems Addressed
Differential Diagnosis Includes:
64yoF here with chest pain. History of afib and felt like she was in afib at 6am. Started having sharp chest pain at 7am which radiated to the back and down both arms. NSR noted on vehicle monitor technician during initial exam. She is well appearing in no
distress. Differential diagnosis includes but is not limited to: afib, ACS, aortic dissection, less likely PE as she is anticoagulated with oxygen saturation of 100%
Initial ED plan: Check cardiac labs, magnesium, TSH, EKG, and CTA dissection study.
<Mercedes Angulo PA-C - Last Filed: 09/06/24 14:32>
*EKG
Interpreted by ED Provider?: Yes
EKG Intrepretation Date: 09/06/24
Heart Rate: 64
Rate: normal
Rhythm: sinus
[place]: normal axis
Interval: normal interval
QRS Pattern: normal QRS
Ischemia: no ischemia
*Critical Care Note
Total Time (30-74mins, 75-104mins- exclusive of procedures): Not Applicable
<Mercedes Angulo PA-C - Last Filed: 09/06/24 14:32>
Update Note
Update Note:
EKG shows NSR without ischemic changes and troponin WNL. Remainder of labs unremarkable including normal electrolytes and TSH. CTA CAP is negative for dissection and other acute findings. Repeat EKG/troponin performed at 3 hours unchanged. No
telemetry events throughout ED stay. No indication for hospitalization. She has an appt tomorrow scheduled with her plaster mechanic. ED return precautions discussed. Patient expressed understanding and was discharged in stable condition.
ED Attending Note
<Mercedes Angulo PA-C - Last Filed: 09/06/24 14:32>
-
Portions of this chart may have been created with voice recognition software.� Occasional wrong word or��sound alike� substitutions may have occurred due to the inherent limitations of voice recognition software.
<Bismark Corrigan MD - Last Filed: 09/06/24 12:38>
ED Attending Note
Patient seen and examined by attending physician: Yes
I performed the substantive portion of visit, reviewed & personally made and approve the management plan that is documented in note by myself or ERIN.: Yes
ED Attending Note:
64-year-old female was somewhat awake at 6 AM when she developed heart racing palpitations irregular heartbeat. Dennis different than her atrial fibrillation or flutter. This lasted 5 minutes or so. Recurred after having decaf coffee that lasted
longer. Associated with some chest pain that went to her upper back. No pleuritic pain no shortness of breath no syncope. Feels much better at this time but has vague mild chest discomfort. Patient exercises regular without issues.
History of supraventricular arrhythmia. Followed by cardiology. On Cardizem beta-blockers and Eliquis.
Exam is unremarkable. Heart regular rate and rhythm no murmur. Abdomen soft and nontender. Lungs clear and equal. Warm and dry. Perfusing well.
EKG is stable no acute findings. Labs are stable. Troponin is negative. CTA is negative. Dissection ruled out. Patient showed me her monitor on her phone. No obvious arrhythmias noted. Mostly artifact.
Will repeat troponin and EKG completeness. If all stable patient can be discharged to follow-up. She has an appointment tomorrow with cardiology
Discharge Plan
Departure
Patient Disposition: Home (Routine Discharge)
Date of Disposition: 09/06/24
Time of Disposition: 14:20
Patient with high blood pressure during this ER visit?: No
Discharge Problem:
Chest pain
Instructions: Chest Pain
Prescriptions:
No Action
Immune Support 1,000-50 mg Tablet, Effervescent
1 ea PO DAILY
xm-ef-anid-FA-Ca carb-vit K 18 mg iron-400 mcg-500 mg Tablet
1 tab PO DAILY
Probiotic Complex 25 billion cell -100 mg Capsule
1 cap PO DAILY
albuterol sulfate 90 mcg/actuation Hfa Aerosol Inhaler
2 puff INHALATION Q6H PRN (Reason: difficulty breathing)
acetaminophen [Tylenol] 325 mg Capsule
650 mg PO Q6H PRN (Reason: headache/pain)
metoprolol succinate 25 mg Tablet Extended Release 24 Hr
12.5 mg PO DAILY AT 0700
metoprolol succinate 25 mg Tablet Extended Release 24 Hr
25 mg PO HS
Systane (PF) 0.4-0.3 % Dropperette
1 drp OPHTHALMIC (EYE) TID
Eliquis 5 mg Tablet
5 mg PO BID
Referrals:
Irvin Marks MD [Family Provider] -
Activity Restrictions/Additional Instructions:
Please follow-up with your plaster mechanic tomorrow as previously scheduled. Return to the ER with any new or worsening symptoms.
Interventions
Interventions:
*Risk Screen - Suicide Last Done: 09/06/24 10:22
*General Assessment Last Done: 09/06/24 10:22
*Neglect/Abuse Screening Last Done: 09/06/24 10:22
ED- Fall Risk Assessment Last Done: 09/06/24 10:22
*ED COVID-19 Vaccine History Last Done: 09/06/24 10:22
ED- Cardiac Assessment Last Done: 09/06/24 10:22
ED- Pulmonary Assessment Last Done: 09/06/24 10:22
Discharge Date and Time
Print Language: YAKUT
[2024-09-06 10:44] LABS: % Basophils 0.5 % (0-2); % Eosinophils 0.5 % (0-6); % Immature Granulocytes 0.3 % (0-0.5); % Lymphocytes 16.4 % (20.5-51.1); % Monocytes 5.8 % (1.7-9.3); % Neutrophils 76.5 % (42.2-75.2); Absolute Lymphocytes 1.2 10^3/uL (1.2-3.4); Absolute Monocytes 0.4 10^3/uL (0.1-0.6); Absolute Neutrophils 5.7 10^3/uL (1.4-6.5); Hematocrit 41.3 % (37.0-47.0); Hemoglobin 14.6 g/dL (12.0-16.0); Mean Corp Hgb Conc. 35.4 g/dL (33.0-37.0); Mean Corpuscular Hgb 31.7 pg (27.0-31.0); Mean Corpuscular Volume 89.6 fL (81.0-99.0); Nucleated Red Blood Cells % 0 %; Platelet Count 246 10^3/uL (130-400); Red Blood Cell Count 4.61 10^6/uL (4.20-5.40); Red Cell Dist. Width 12.3 % (11.5-14.5); White Blood Cell Count 7.4 10^3/uL (4.8-10.8)
[2024-09-06 11:00] VITALS: BP 106/62
[2024-09-06 11:04] LABS: ALT (SGPT) 17 U/L (0-35); AST (SGOT) 29 U/L (14-36); Albumin 4.4 g/dl (3.5-5.0); Alkaline Phosphatase 106 U/L (38-126); Blood Urea Nitrogen 19 mg/dl (7-17); Calcium 9.1 mg/dl (8.4-10.2); Carbon Dioxide 28 mmol/L (22-30); Chloride 102 mmol/L (98-107); Estimated Creatinine Clearance 88 ml/min; Glucose 98 mg/dl (70-99); Magnesium 2.2 mg/dl (1.6-2.3); Potassium 4.2 mmol/L (3.5-5.1); Sodium 135 mmol/L (135-145); Total Bilirubin 0.5 mg/dl (0.2-1.3); Total Protein 7.4 g/dl (6.3-8.2); eGFR > 60.00
[2024-09-06 11:08] LABS: Troponin I < 0.012 ng/ml
[2024-09-06 11:35] LABS: TSH Reflex To Free T4 1.49 uIU/ml (0.47-4.68)
[2024-09-06 12:00] VITALS: BP 107/66
[2024-09-06 13:00] VITALS: BP 104/76
[2024-09-06 14:00] VITALS: BP 106/70
[2024-09-06 14:12] LABS: Troponin I < 0.012 ng/ml
== END 2024-09-06 14:37 | disposition home or self-care (01) ==
LOC: EMR 10:20
PROVIDERS: Physician Assistant; EMERGENCY PHYSICIAN Emergency Medicine; FAMILY PHYSICIAN Internal Medicine
DX: R07.89 Other chest pain (principal); I48.0 Paroxysmal atrial fibrillation; J45.909 Unspecified asthma, uncomplicated; Z90.49 Acquired absence of other specified parts of digestive tract
CPT/HCPCS: 99284; 71275; 74174; 80053; 83735; 84443; 84484; 85025; 93005; Q9967

== ENCOUNTER → 2024-09-18 09:05 | Outpatient (REF) | payer OTHER, SELFPAY | LOC: RCS 09:05 | PROVIDERS: ATTENDING PHYSICIAN Internal Medicine Cardiovascular Disease; FAMILY PHYSICIAN Internal Medicine | DX: I47.19 Other supraventricular tachycardia (principal) | CPT/HCPCS: 93017; 93350 ==

== ENCOUNTER 2024-10-09 05:59 | Day surgery (SDC) | payer OTHER, SELFPAY ==
[2024-10-02 12:37] VITALS: BMI 21.9
[2024-10-02 13:21] LABS: % Basophils 1.1 % (0-2); % Eosinophils 1.6 % (0-6); % Immature Granulocytes 0.2 % (0-0.5); % Monocytes 7.7 % (1.7-9.3); % Neutrophils 61.4 % (42.2-75.2); Absolute Basophils 0.1 10^3/uL (0-0.2); Absolute Eosinophils 0.1 10^3/uL (0-0.7); Absolute Lymphocytes 1.5 10^3/uL (1.2-3.4); Absolute Monocytes 0.4 10^3/uL (0.1-0.6); Absolute Neutrophils 3.4 10^3/uL (1.4-6.5); Hematocrit 38.6 % (37.0-47.0); Hemoglobin 13.3 g/dL (12.0-16.0); Mean Corp Hgb Conc. 34.5 g/dL (33.0-37.0); Mean Corpuscular Hgb 31.7 pg (27.0-31.0); Mean Corpuscular Volume 91.9 fL (81.0-99.0); Mean Platelet Volume 9.1 fL (7.4-10.4); Nucleated Red Blood Cells % 0 %; Platelet Count 250 10^3/uL (130-400); Red Cell Dist. Width 12.6 % (11.5-14.5); White Blood Cell Count 5.5 10^3/uL (4.8-10.8)
[2024-10-02 13:59] LABS: ALT (SGPT) 16 U/L (0-35); AST (SGOT) 26 U/L (14-36); Albumin 4.1 g/dl (3.5-5.0); Alkaline Phosphatase 88 U/L (38-126); Blood Urea Nitrogen 14 mg/dl (7-17); Calcium 9.2 mg/dl (8.4-10.2); Carbon Dioxide 27 mmol/L (22-30); Chloride 101 mmol/L (98-107); Estimated Creatinine Clearance 86 ml/min; Glucose 90 mg/dl (70-99); Potassium 4.3 mmol/L (3.5-5.1); Sodium 136 mmol/L (135-145); Total Bilirubin 0.5 mg/dl (0.2-1.3); Total Protein 6.9 g/dl (6.3-8.2); eGFR > 60.00
[2024-10-09] VITALS (26 sets, daily range): BP systolic 103–123; BP diastolic 64–80
[2024-10-09 08:32] LABS: ACT-LR - POC 287 Seconds (116-155)
[2024-10-09 09:00] LABS: ACT-LR - POC 269 Seconds (116-155)
[2024-10-09 09:25] LABS: ACT-LR - POC 277 Seconds (116-155)
--- NOTE | 2024-10-09 10:21 | ITS.CL.ABL ---
[facility] - Ablation
Ablation
Procedure Report:
Supra-ventricular tachycardia ablation:
Ms. Garner is a very pleasant 64 yr old woman with h/o AF/AFL and AT s/p PVI (09/01/23) and right atrial flutter and focal atrial tach ablation (04/23/24) multiple recurrence of atrial tachycardia flutter presented for SVT ablation.
Date of the Procedure:
10/09/2024
Indications:
Highly symptomatic atrial tachycardia
Pre-Operative Diagnosis:
Recurrent atrial tachycardia
Post-Operative Diagnosis:
Recurrent atrial tachycardia
Procedure Performed:
Atrial tachycardia ablation with foci at mid Татьяна Terminalis and at the lateral wall of the right atrium
Performing Physician:
Nick Ceballos MD
Assistants:
EP staff
Anesthesia:
See anesthesia records
Detailed Description of the Procedure:
Written informed consent was obtained from the patient after a full explanation of the risks and benefits of the procedure including the risks of sedation and anesthesia.
The patient was brought to the electrophysiology laboratory in stable condition in fasting state. Continuous electrocardiographic and hemodynamic monitoring was initiated.
The initial rhythm was normal sinus rhythm.
The procedure site was meticulously prepared with surgical scrub and allowed to dry with no pooling. Sterile draping was applied to cover the procedure site. The image intensifier was draped with sterile bag and positioned over the patient.
After infusion of local anesthetic, vascular access was obtained under ultrasound guidance and sheaths were placed over guide wire as detailed below.
Sheath and Catheter Placement:
In the right femoral vein, an 8-Slovenian sheath was placed for use during the ablation procedure. A second 7-Slovenian sheath was placed through which a decapolar catheter was placed in the coronary sinus (CS) for left atrial stimulation and mapping..
The following catheters / sheaths were placed
Sheaths:
��������� 12.5 Fr Agilis sheath in right femoral vein
��������� 9Fr in the right femoral vein
Catheters:
��������� The Affera Sphere 9 catheter -bidirectional D/F� - at locations of HRA, RV, CS and His.
��������� Decapolar Bard catheter - at locations of RA, CS
A 7000 units of heparin was given after the access was complete and drip started.
EP study:
A full EP study was done.
Baseline intervals (milliseconds):
PP interval (baseline cycle length): 808
P wave duration:121
VA interval:158
QRS duration: 89
QT interval: 404
�
P onset to HRA: 0
P onset to AVJ: 42
AH interval: 55
His duration: 12
HV interval: 40
�
Normal sinus node
Normal AV node with decremental conduction noted.
AV node Wenckebach noted at 350 msec.
The AVN ERP was 600/320 msec. There was no jump noted or evidence of dual AV red pathway noted.
Infrequent PACs noted. The PACs were mapped. There were short non sustained runs of atrial tachycardia coming from the right atrium.
Electroanatomic mapping (EAM):
Electroanatomic mapping (EAM) of the right atrium was performed using the Sphere 9 Affera catheter advanced through Agilis sheath. The EAMs of the PACs and AT were obtained.
The PACs /AT were right atrial origin based on the conduction pattern on the CS. The AT from the right atrium and were mapped. The origin appeared to be coming from the RA lateral wall anterior to the Татьяна Terminalis.
This was the location of the AT noted on the previous ablation but had phrenic capture at the point of interest and ablation could not be done safely.
Burst pacing from the RA, and the prox CS and mid CS were able to induce atria tachycardia that was short lived and not sustained. The entrainment maneuvers could not be performed. The decision was made to map the RA after the induction after
stabilizing the initial wobble. The induced AT was 440 msec in cycle length. It was localized to the lateral wall anterior to mid Татьяна location.
The CS was paced and RA map was created in CS pacing showing the block at the CTI with previous CTI line staying blocked.
Of note, there were scar noted at the cavo-tricuspid isthmus location but there was no flutter induced.
Isuprel stimulation test:
Isuprel infusion was initiated. The heart rate and blood pressure was monitored. Isuprel was gradually increased from 1 to 8 mcg/min. There was adequate tachycardia response noted at 8 mcg/min dose and EP study and SVT induction was again attempted.
No sustained arrhythmia was induced. Isuprel was discontinued.
Tachycardia:
The obtained maps of the PACs, and ATs and the electrograms were studied in detail and adequate unipolar as well as excellent LAT maps were identified.
Atrial tachycardia Ablation:
Atrial tachycardia # 1:
Pulse field ablation was performed using Pulsed field ablation was performed using an open irrigation, bidirectional, contact sensing, dual energy ablation catheter (Affera sphere -9).
The ablation catheter was placed at the best unipolar location and ablation was done using pulsed field energy. The ablation resulted in adequate tissue approximation and acceptable temperature rise.
The ablation in the mid Татьяна location was done first and it induced multiple PACs from the mid to inferior Татьяна location. Further consolidated lesions were made around the area and PACs subsided.
The ablated area created scar anterior to the the Татьяна creating a suitable substrate for propagation of atrial flutter. Decision was made to connect this to the Таьтяна and the posterior scar. Hence, a line of ablations were placed connecting the
ablated area to the Татьяна and to the inferolateral scar adjacent to IVC.
Full EP study was done at the end of the case.
Post ablation HV interval was unchanged at 40 msec
The post ablation AV Red ERP was 600/320 msec.
Procedure End
Following the completion of the EP study, Protamine 30 mg was give and catheters were removed.� The sheaths were removed and hemostasis achieved with �figure of 8� suture and manual compression.
Estimated Blood loss:
<5 cc
Specimens Removed:
None.
Implants / Devices:
None
Urine output:
None
Packs / Drains/ Tubes:
None
Instrument / Sponge Count Correct:
Yes
Fluoro time:
0.2 min �
Complications of the Procedure:
None
Condition of Patient at Time of Transfer:
Hemodynamically stable with no neurological or vascular compromise.
Summary:
Successful Atrial tachycardia ablation with foci at lateral wall of the right atrium
.
sinus pre-ablation
Sinus post ablation
CTI block
[2024-10-09] MEDS: ANESTHETIC LOZENGE 1 LOZENGE PO (12:03)
--- NOTE | 2024-10-09 14:09 | W.PN.UPDATE ---
Update Note
Progress Note Update
64 yo WF s/p AT ablation (same day). She denies cp, sob, dianne diet, R fem site c/d/i no HT, soft, EKG SR with occ PAC's. She will resume Eliquis tonight. She will continue diltiazem. Activity restrictions reviewed. She will f/u PRICE CLERK in 2 weeks. She is
for d/c home after 245p if groin stable and voiding.
Procedure Performed:
Atrial tachycardia ablation with foci at mid [place] Terminalis and at the lateral wall of the right atrium
== END 2024-10-09 15:00 | disposition home or self-care (01) ==
LOC: CATH 05:59
PROVIDERS: ATTENDING PHYSICIAN Internal Medicine Cardiovascular Disease; FAMILY PHYSICIAN Internal Medicine; OTHER PHYSICIAN Internal Medicine
DX: I47.19 Other supraventricular tachycardia (principal); I48.0 Paroxysmal atrial fibrillation; I48.3 Typical atrial flutter; I95.1 Orthostatic hypotension; J45.20 Mild intermittent asthma, uncomplicated; Z86.69 Personal history of other diseases of the nervous system and sense organs; Z79.899 Other long term (current) drug therapy; Z79.01 Long term (current) use of anticoagulants; Z88.0 Allergy status to penicillin; Z88.2 Allergy status to sulfonamides; Z88.1 Allergy status to other antibiotic agents; Z90.49 Acquired absence of other specified parts of digestive tract
CPT/HCPCS: C1730; C1892; C1766; C1733; 36415; 80053; 85025; 85347; 86850; 86900; 86901; 93005; 93623; 93653

== ENCOUNTER → 2025-07-08 12:37 | Outpatient (REF) | payer MEDICARE, SELFPAY | LOC: RAD 12:37 | PROVIDERS: ATTENDING PHYSICIAN Obstetrics & Gynecology; FAMILY PHYSICIAN Internal Medicine | DX: Z78.0 Asymptomatic menopausal state (principal) | CPT/HCPCS: 77080 ==

== ENCOUNTER 2025-07-23 09:42 | Outpatient (RCR) | payer MEDICARE, SELFPAY | END 2025-07-23 23:59 | disposition home or self-care (01) | LOC: RPT 09:42 | PROVIDERS: ATTENDING PHYSICIAN Student in an Organized Health Care Education/Training Program; FAMILY PHYSICIAN Internal Medicine | DX: S82.831D Other fracture of upper and lower end of right fibula, subsequent encounter for closed fracture with routine healing (principal); Z73.6 Limitation of activities due to disability; R26.2 Difficulty in walking, not elsewhere classified; M62.81 Muscle weakness (generalized); X50.1XXD Overexertion from prolonged static or awkward postures, subsequent encounter | CPT/HCPCS: 97110; 97112; 97140; 97162 ==